=== PATIENT | male | born 1975 | race Caucasian/White ===

== ENCOUNTER 2019-11-09 16:22 | Emergency (ER) | payer BC ==
[2019-11-09] MEDS ORDERED: AMOX1TAB61 PO (17:31)
--- NOTE | 2019-11-09 17:32 | PHYS DOC ---
Past History Past Medical History: No Pertinent History Past Surgical History: No Surgical History Additional Smoking Information: 2 ppd Alcohol Use: Heavy Additional Alcohol Information: daily Drug Use: None Adult General Chief Complaint Chief Complaint: SORE THROAT HPI HPI 44-year-old male presents with right sided throat pain. The patient has had decreased voice strength for the last 1 year. He smokes 2 packs a day and drinks alcohol daily. 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 Last 2 days he is right sided discomfort. It is sore to talk and swallow. The patient denies fever or chills. He does not believe the doctor very often. He has never seen an ENT for his decreased voice strength. He has no other complaints at this time. Review of Systems Review of Systems Constitutional: Denies fever or chills [] Eyes: Denies change in visual acuity, redness, or eye pain [] HENT: Decreased voice strength, sore throat [] Respiratory: Denies cough or shortness of breath [] Cardiovascular: No additional information not addressed in HPI [] GI: Denies abdominal pain, nausea, vomiting, bloody stools or diarrhea [] : Denies dysuria or hematuria [] Musculoskeletal: Denies back pain or joint pain [] Integument: Denies rash or skin lesions [] Neurologic: Denies headache, focal weakness or sensory changes [] Endocrine: Denies polyuria or polydipsia [] All other systems were reviewed and found to be within normal limits, except as documented in this note. Allergies Allergies Allergies Coded Allergies Type Severity Reaction Last Updated Verified No Known Drug Allergies 11/09/19 No Physical Exam Physical Exam Constitutional: Well developed, well nourished, no acute distress, non-toxic appearance. [] HENT: Normocephalic, atraumatic, oropharynx mildly erythematous without tonsillar exudates, no oral exudates, nose normal. Right ear canal obstructed with cerumen. Once removed, tympanic membrane was erythematous and bulging.[] Eyes: PERRLA, EOMI, conjunctiva normal, no discharge. [] Neck: Normal range of motion, no tenderness, supple, no stridor. No significant palpable lymph nodes [] Cardiovascular:Heart rate regular rhythm, no murmur [] Lungs & Thorax: Bilateral breath sounds clear to auscultation [] Abdomen: Bowel sounds normal, soft, no tenderness, no masses, no pulsatile masses. [] Skin: Warm, dry, no erythema, no rash. [] Back: No tenderness, no CVA tenderness. [] Extremities: No tenderness, no cyanosis, no clubbing, ROM intact, no edema. [] Neurologic: Alert and oriented X 3, normal motor function, normal sensory function, no focal deficits noted. [] Psychologic: Affect normal, judgement normal, mood normal. [] Current Patient Data Vital Signs Vital Signs Date Time Temp Pulse Resp B/P (MAP) Pulse Ox O2 Delivery O2 Flow Rate FiO2 11/09/19 16:43 98.2 87 18 97 Room Air EKG EKG [] Radiology/Procedures Radiology/Procedures [] Course & Med Decision Making Course & Med Decision Making Pertinent Labs and Imaging studies reviewed. (See chart for details) Patient had impacted cerumen in the right ear. I was able to manually remove it with a curet. Afterwards, the inspection of his eardrum revealed an erythematous and bulging tympanic membrane. This appears to be an otitis media. I will place him on Augmentin for 10 days. His rapid strep is negative. He is stable for discharge at this time. [] Dragon Disclaimer Dragon Disclaimer This electronic medical record was generated, in whole or in part, using a voice recognition dictation system. Departure Departure: Impression: Primary Impression: Otitis media, right Additional Impression: Impacted cerumen, right ear Disposition: HOME, SELF-CARE Condition: STABLE Referrals: PCP,NO (PCP) Patient Instructions: Otitis Media, Adult, [id number] Scripts Amoxicillin/Potassium Clav (AUGMENTIN 875-125 TABLET) 1 Each Tablet 1 TAB PO BID for ear infection for 10 Days, #20 TAB 0 Refills Prov: HERMELINDA WILLINGHAM DO 11/09/19 Problem Qualifiers Primary Impression: Otitis media, right Otitis media type: suppurative Chronicity: acute Recurrence: non- recurrent Spontaneous tympanic membrane rupture: without spontaneous rupture Qualified Codes: H66.001 - Acute suppurative otitis media without spontaneous rupture of ear drum, right ear HERMELINDA WILLINGHAM DO Nov 09, 2019 17:32
[2019-11-09 18:02] VITALS: BP 148/87
== END 2019-11-09 17:55 | disposition home or self-care (01) ==
LOC: ER 16:22
DX: H66.001 Acute suppurative otitis media without spontaneous rupture of ear drum, right ear (principal); H61.21 Impacted cerumen, right ear; F17.200 Nicotine dependence, unspecified, uncomplicated; F10.20 Alcohol dependence, uncomplicated; Y90.9 Presence of alcohol in blood, level not specified
CPT/HCPCS: 69210; 87070; 87880; 99283; 99284